=== PATIENT | male | born 1990 | race Two or more races ===

== ENCOUNTER 2020-12-17 14:37 | Emergency (ER) | payer OTHER ==
[~2020-12-17] VITALS: Ht 182.9 cm; Wt 99.8 kg
[2020-12-17] MEDS ORDERED: SODIUM CHLORIDE 0.9% 1,000 ML IV ONE ×2 (14:45→17:15)
[2020-12-17 15:23] LABS: Basophils # (auto) 0 10 ^3/uL (0-0.2); Eosinophils # (auto) 0 10 ^3/uL (0-0.8); Mean Corpuscular Hemoglobin 29.4 pg (28.0-32.0); Mean Corpuscular Hgb Conc. 34.7 g/dL (32.0-36.0); Red Cell Distribution Width 13.4 % (11.8-14.3)
[2020-12-17 15:25] LABS: Basophils % (auto) 0.2 % (0.0-2.0); Hematocrit 55.6 % (41.0-53.0); Hemoglobin 19.3 g/dL (13.5-17.5); Lymphocytes # (auto) 0.9 10 ^3/uL (0.4-5.4); Lymphocytes % (auto) 6.7 % (10.0-50.0); Mean Corpuscular Volume 84.7 fL (80.0-100.0); Monocytes # (auto) 0.9 10 ^3/uL (0-1.3); Monocytes % (auto) 6.7 % (0.0-12.0); Neutrophils # (auto) 11.4 10 ^3/uL (1.6-8.6); Neutrophils % (auto) 86.4 % (37.0-80.0); Nucleated Red Blood Cells % 0.3 %; Red Blood Cells 6.56 10^6/uL (4.5-5.90); White Blood Cell 13.1 10^3/uL (4.4-10.8)
[2020-12-17 15:43] LABS: Albumin 4.5 g/dL (3.4-5.0); Anion Gap 17 (5-15); Blood Urea Nitrogen 44 mg/dL (7-18); Calcium 10.2 mg/dL (8.5-10.1); Carbon Dioxide 15 mmol/L (21-32); Chloride 100 mmol/L (98-107); Glucose 151 mg/dL (74-106); Potassium 3.3 mmol/L (3.5-5.1); Sodium 132 mmol/L (136-145)
[2020-12-17 15:45] LABS: Alanine Aminotransferase 53 U/L (16-61); Aspartate Aminotransferase 42 U/L (15-37); BUN/Creatinine Ratio 13.8; GFR African American 29 mL/min; GFR Non-African American 24 mL/min
[2020-12-17 15:50] LABS: Alkaline Phosphatase 72 U/L (45-117); Bilirubin, Total 2.6 mg/dL (0.2-1.0); Total Protein 10.1 g/dL (6.4-8.2)
[2020-12-17] MEDS ORDERED: POTASSIUM EFFERVESENT TAB 25 MEQ PO ONE (18:00)
[2020-12-18 02:40] VITALS: BP 103/76
== END 2020-12-18 03:11 | disposition home or self-care (01) ==
LOC: ER 14:37
DX: K52.9 Noninfective gastroenteritis and colitis, unspecified (principal); D72.829 Elevated white blood cell count, unspecified; E86.0 Dehydration; E87.2 Acidosis; E11.65 Type 2 diabetes mellitus with hyperglycemia; E87.6 Hypokalemia; R00.0 Tachycardia, unspecified
CPT/HCPCS: 36415; 71045; 74176; 80053; 82010; 83036; 83605; 84484; 85025; 87426; 93005; 96360; 96361